=== PATIENT | male | born 1960 | race Caucasian/White ===

== ENCOUNTER 2016-09-09 06:41 | Inpatient (IN) | payer OTHER ==
[2016-08-25 14:29] VITALS: BMI 31.0
--- NOTE | 2016-08-25 15:08 | PAT Medication Instructions ---
Service Date Aug 25, 2016. Current Home Medication List Acetaminophen (Tylenol), 1,000 MG PO PRN Aspirin (Aspirin Ec), 81 MG PO QAM Fish Oil ([place]-3), 2 CAP PO QAM Multiple Vitamins W/ Minerals (Eql One Daily Mens Health), 1 TAB PO QAM Tamsulosin Hcl (Flomax), 1 CAP PO HS Medication Instructions For Your Scheduled Surgery - Check with surgeon for instructions: Aspirin (Aspirin Ec), 81 MG PO QAM - Hold the following medications 2 weeks prior to surgery: Fish Oil ([place]-3), 2 CAP PO QAM - Hold the following medications the morning of surgery: Multiple Vitamins W/ Minerals (Eql One Daily Mens Health), 1 TAB PO QAM - Take the following medications the morning of surgery with a sip of water: Acetaminophen (Tylenol), 1,000 MG PO PRN - Take the following medications as scheduled the night before surgery: Tamsulosin Hcl (Flomax), 1 CAP PO HS Acetaminophen (Tylenol), 1,000 MG PO PRN If you have any questions please call us at [phone] (Trista Salazar PA-C) or [phone] or [phone]
--- NOTE | 2016-08-25 15:39 | DIAGNOSTIC IMAGING REPORT ---
CHEST 2 VIEWS ROUTINE CLINICAL HISTORY: Preoperative evaluation. COMPARISON STUDY: Chest radiograph July 02, 2010. FINDINGS: Lung volumes are normal. There is no pneumothorax or pleural effusion. There is no consolidation. Pulmonary vascularity is normal. Cardiomediastinal silhouette is normal. IMPRESSION: No acute cardiopulmonary findings. Electronically signed by: Eloy Banda M.D. 08/25/2016 3:37 PM Dictated Date/Time: 08/25/2016 3:36 PM
[2016-08-25 16:17] LABS: BASO % 0.2 %; BASO ABS # 0.01 K/uL (0-0.2); COMPLETE YES; EOS % 1.2 %; IG% 0.2 %; LYMPH ABS # 1.54 K/uL (1.2-3.4); MEAN CELL VOLUME 91.3 fL (80-100); MEAN CORPUSCULAR HEMOGLOBIN 32.6 pg (25-34); MEAN CORPUSCULAR HGB CONC 35.8 g/dl (32-36); MEAN PLATELET VOLUME 10.7 fL (7.4-10.4); MONO % 5.6 %; NEUT % 66.8 %; PLATELET COUNT 170 K/uL (130-400); RED BLOOD COUNT 4.38 M/uL (4.7-6.1); WHITE BLOOD COUNT 5.92 K/uL (4.8-10.8)
[2016-08-25 16:18] LABS: URINE APPEARANCE CLEAR (CLEAR); URINE BILIRUBIN NEG (NEG); URINE COLOR YELLOW; URINE NITRITE NEG (NEG); URINE SPECIFIC GRAVITY 1.011 (1.000-1.030); UROBILINOGEN NEG (NEG)
[2016-08-25 16:23] LABS: MANUAL MICROSCOPIC REQUIRED? NO; REVIEW REQ? NO
[2016-08-25 16:41] LABS: BUN/CREATININE RATIO 12.9 (10-20); CALCIUM 8.9 mg/dl (8.5-10.1); CREATININE 1.2 mg/dl (0.60-1.40)
[2016-09-09] VITALS (8 sets, daily range): BP systolic 104–133; BP diastolic 63–74; PULSE 59–97; TEMP 36.4–37.1; O2SAT 95–100; Ht 170.2 cm; Wt 90.4 kg
[~2016-09-09] VITALS: Ht 170.2 cm; Wt 90.4 kg
[~2016-09-09 06:41] MED LIST: ACET-1256 PO; ASPI81TA28 PO; CEFAZOLIN 2000 MG/60 ML D5W IV SCH; HEPARIN SOD 5000 UNIT/0.5 ML CARP SQ SCH; LACTATED RINGER'S 1000ML 1,000 ML IV SCH; OMEG10007 PO; TAMS0.4C38 PO; [UNRECOGNIZED DRUG - CODE] PO
[2016-09-09] MEDS ORDERED: ATROPINE SULFATE 0.1 MG/ML 5ML SYR IV PRN (06:45)
[2016-09-09] MEDS ORDERED: FENTANYL CITRATE INJ 50 MCG/1 ML 2 ML VIAL IV PRN (06:45)
[2016-09-09] MEDS ORDERED: EpHEDrine SULFATE INJ 50 MG/ML AMP IV PRN (06:45)
[2016-09-09] MEDS ORDERED: ONDANSETRON INJ 2 MG/ML 2 ML VIAL IV PRN ×2 (06:45→12:00)
--- NOTE | 2016-09-09 07:09 | History & Physical Bridge Note ---
H&P Re-Evaluation Bridge Note: I have examined the patient, reviewed the History & Physical and in the interval since the performance of the History & Physical I have noted the following changes of clinical significance: No changes noted
[2016-09-09] MEDS ORDERED: LIDOCAINE HCL 2% 2 ML VIAL (20MG/ML) ONE (07:45)
[2016-09-09] MEDS ORDERED: FENTANYL CITRATE INJ 50 MCG/1 ML 2 ML VIAL ONE ×2 (07:45→12:14)
[2016-09-09] MEDS ORDERED: NEOSTIGMINE METHYLSULFATE 5 MG/5 ML SYR ONE (07:45)
[2016-09-09] MEDS ORDERED: DEXAMETHASONE SOD INJ 4 MG/ML VIAL ONE (07:45)
[2016-09-09] MEDS ORDERED: ONDANSETRON INJ 2 MG/ML 2 ML VIAL ONE ×2 (07:45→08:47)
[2016-09-09] MEDS ORDERED: GLYCOPYRROLATE INJ 0.2 MG/ML VIAL ONE ×2 (07:45→08:47)
[2016-09-09] MEDS ORDERED: PROPOFOL IV EMULSION 10 MG/ML 20 ML VIAL IV ONE (07:45)
[2016-09-09] MEDS ORDERED: ROCURONIUM BROMIDE 10 MG/ML 5 ML VIAL ONE ×2 (07:45→08:47)
[2016-09-09] MEDS ORDERED: MIDAZOLAM HCL 1 MG/ML 2ML VIAL ONE (07:45)
[2016-09-09] MEDS ORDERED: METHYLENE BLUE 0.5% 10 ML VIAL ONE (07:46)
[2016-09-09] MEDS ORDERED: BUPIVACAINE 0.5 % 5 MG/1 ML MPF 30ML VIAL ONE (07:47)
[2016-09-09] MEDS ORDERED: HYDROmorphone INJ 2 MG/ML SYR/VIAL ONE (08:49)
[2016-09-09] MEDS ORDERED: ACETAMINOPHEN 1000 MG/100 ML IV IV ONE (09:12)
[2016-09-09] MEDS ORDERED: EpHEDrine SULFATE 50MG/5ML SYR ONE (09:17)
[2016-09-09] MEDS ORDERED: SURGICEL ABSORB HEMOSTAT 2IN X 14IN TOP ONE (10:30)
[2016-09-09] MEDS ORDERED: FLOSEAL HEMOSTATIC MATRIX 10ML TOP ONE (10:30)
[2016-09-09] MEDS: LACTATED RINGER'S 1000ML 1,000 ML IV SCH ×2 (11:50→19:23)
[2016-09-09] MEDS ORDERED: KETOROLAC TROMETHAMINE 30 MG/ML VIAL IV. PRN (12:00)
[2016-09-09] MEDS ORDERED: OXYBUTYNIN CHLORIDE 5 MG TAB PO PRN (12:00)
[2016-09-09] MEDS ORDERED: OXYCODONE/ACETAMINOPHEN 7.5-325 TAB PO PRN (12:00)
[2016-09-09] MEDS ORDERED: HYDROmorphone INJ 1 MG/ML SYR IV PRN (12:00)
--- NOTE | 2016-09-09 12:10 | [facility] Post Operative Brief Note ---
Immediate Operative Summary Operative Date Sep 09, 2016. Pre-Operative Diagnosis Arn[place] 3+3 prostate cancer Post-Operative Diagnosis [place] 3+3 prostate cancer Procedure(s) Performed Robot assisted laparoscopic radical retropubic prostatectomy, bilateral nerve sparing Surgeon Dr. Karel Santos Hydrochloric Acid Operator Surgeon(s) JUNO Trejo Estimated Blood Loss 150 ML Findings Watertight anastomosis, excellent hemostasis and nerve sparing Specimens A: Periprostatic Fat B: Prostate and seminal vesicles Drains 18 fr silicone solano, 10 cc H2O, #10 CAMILA LLQ Anesthesia GAET + local Complication(s) None Disposition Recovery Room / PACU
[2016-09-09 12:13] LABS: HEMATOCRIT 40.6 % (42-52); MEAN CELL VOLUME 92.3 fL (80-100); MEAN CORPUSCULAR HEMOGLOBIN 31.6 pg (25-34); PLATELET COUNT 152 K/uL (130-400); WHITE BLOOD COUNT 9.17 K/uL (4.8-10.8)
[2016-09-09 12:17] LABS: MEAN CORPUSCULAR HGB CONC 34.2 g/dl (32-36)
[2016-09-09 12:35] LABS: BUN/CREATININE RATIO 11.3 (10-20); CALCIUM 8.5 mg/dl (8.5-10.1); CREATININE 1.1 mg/dl (0.60-1.40); POTASSIUM 3.9 mmol/L (3.5-5.1)
[2016-09-09] MEDS ORDERED: MoRPHine SULFATE 10 MG/ML CARP/VIAL ONE (12:55)
[2016-09-09] MEDS ORDERED: MoRPHine SULFATE 10 MG/ML CARP/VIAL IV PRN (13:00)
--- NOTE | 2016-09-09 13:45 | Anesthesiology Progress Note ---
Anesthesia Post Op Note Date & Time Sep 09, 2016 at 13:44 Vital Signs Pain Intensity: 2 Vital Signs Past 12 Hours Date Time Temp Pulse Resp B/P Pulse Ox O2 Delivery O2 Flow Rate FiO2 09/09/16 13:40 114/58 09/09/16 13:39 64 17 09/09/16 13:39 64 17 99 09/09/16 13:35 127/69 09/09/16 13:34 74 16 100 09/09/16 13:34 73 16 09/09/16 13:31 116/62 09/09/16 13:29 65 15 09/09/16 13:29 65 15 99 09/09/16 13:25 112/61 09/09/16 13:24 73 12 09/09/16 13:24 74 12 100 09/09/16 13:20 105/65 09/09/16 13:19 64 17 98 09/09/16 13:19 64 17 09/09/16 13:17 36.4 78 12 116/62 100 Nasal Cannula 2 09/09/16 13:16 104/57 09/09/16 13:14 72 10 98 09/09/16 13:14 69 10 09/09/16 13:13 80 11 99 09/09/16 13:13 80 11 09/09/16 13:10 113/61 09/09/16 13:08 97 14 99 09/09/16 13:08 95 14 09/09/16 13:06 111/63 09/09/16 13:03 82 14 100 09/09/16 13:03 74 14 09/09/16 13:00 122/70 09/09/16 12:58 71 16 98 09/09/16 12:58 71 16 09/09/16 12:55 112/66 09/09/16 12:53 62 10 09/09/16 12:53 62 10 100 09/09/16 12:51 122/70 09/09/16 12:48 65 14 100 09/09/16 12:48 65 14 09/09/16 12:46 130/70 09/09/16 12:43 66 12 09/09/16 12:43 66 12 100 09/09/16 12:40 129/77 09/09/16 12:38 80 19 09/09/16 12:38 77 19 100 09/09/16 12:36 129/73 09/09/16 12:33 75 17 100 09/09/16 12:33 75 17 09/09/16 12:30 117/65 09/09/16 12:28 64 17 09/09/16 12:28 62 17 100 09/09/16 12:25 119/65 09/09/16 12:23 64 12 100 09/09/16 12:23 63 12 09/09/16 12:21 112/74 09/09/16 12:18 64 10 09/09/16 12:18 64 10 100 09/09/16 12:17 68 10 09/09/16 12:17 68 10 100 09/09/16 12:16 119/70 09/09/16 12:12 79 10 09/09/16 12:12 79 10 100 09/09/16 12:11 127/69 09/09/16 12:07 74 14 09/09/16 12:07 72 14 100 09/09/16 12:06 121/64 09/09/16 12:02 68 10 09/09/16 12:02 72 10 100 09/09/16 12:00 112/60 09/09/16 12:00 71 12 112/60 98 Mask 10 09/09/16 11:57 73 17 95 09/09/16 11:57 72 17 09/09/16 11:55 113/57 09/09/16 11:53 107/59 09/09/16 11:52 36.4 73 16 107/59 98 Mask 10 09/09/16 07:27 36.9 63 20 133/74 95 Room Air Notes Mental Status: alert / awake / arousable, participated in evaluation Pt Amnestic to Procedure: Yes Nausea / Vomiting: adequately controlled Pain: adequately controlled Airway Patency, RR, SpO2: stable & adequate BP & HR: stable & adequate Hydration State: stable & adequate Anesthetic Complications: no major complications apparent
--- NOTE | 2016-09-09 14:05 | OPERATIVE REPORT ---
DATE OF OPERATION: 09/09/2016 PREOPERATIVE DIAGNOSIS: [place] 3+3 adenocarcinoma of the prostate. POSTOPERATIVE DIAGNOSIS: Same. PROCEDURE: Robot-assisted laparoscopic radical retropubic prostatectomy with bilateral nerve sparing dissection. SURGEON: Dr. Karel Santos. FISH FRYER: JUNO Trejo. ANESTHESIA: General anesthesia with endotracheal intubation plus local at port sites. ESTIMATED BLOOD LOSS: 150 mL. IV FLUIDS: 1300 mL crystalloid. COMPLICATIONS: None. FINDINGS: Watertight anastomosis with excellent hemostasis and nerve sparing dissection on both sides. DRAINS LEFT IN PLACE: Include an 18 [place] Jeffers catheter to gravity drainage with 10 mL of sterile water in the balloon, silicone catheter used, #10 CAMILA drain in the left lower quadrant. SPECIMENS SENT TO PATHOLOGY: Periprostatic fat, prostate plus seminal vesicles. BRIEF HISTORY: Mr. Leo is a pleasant 56-year-old male who I have seen as an outpatient in consultation for Dr. Mario Wilhelm for a history of newly diagnosed [place] 3+3 adenocarcinoma of the prostate. The patient has relatively low risk disease and after discussing risks and benefits of various forms of intervention, he has decided upon a robotic prostatectomy to manage his disease. Seeing his low risk disease, nerve sparing dissection and no lymph node dissection is planned on both sides. Please see H\T\P for further details. Subcutaneous heparin and intravenous cephalosporins are provided for antibiotic coverage and DVT prophylaxis. SCDs were also used. PROCEDURE IN DETAIL: The patient was properly identified and brought to the operative suite. After identification of appropriate consent on the chart, general anesthesia with endotracheal intubation was initiated and the patient was prepped and draped in standard fashion for this procedure. time clock inspector-out procedure was followed. All port sites were anesthetized with local prior to incision. Supraumbilical incision 12 mm in size was made and abdomen was entered under direct visualization using a visual obturator and a 0 degree laparoscope. Abdomen was insufflated to 15 mmHg and the patient was noted to have excellent intraabdominal anatomy with the prostate fat. Ports were placed for a 4th arm robotic template including 2 left-sided 7 mm ports, 1 right-sided 7 mm port and 5 and 12 mm museum assistant ports on the right hand side. The patient was placed in Trendelenburg and robot was brought in and docked. Bladder was dropped down to the level of the pubic bone and prostate was defatted. Periprostatic fat was sent for pathologic analysis. Endopelvic fascia was entered on both sides sharply and dissection was carried out to the level of the apex. Again, excellent anatomy was appreciated. An apparent accessory vessel in the area of the dorsal vein was spared and left intact, felt to possibly be assisting with erectile function. Dorsal vein was controlled using [id number] 0 Vicryl suture on a CT1 needle. The boundaries of nerve sparing were defined using cold dissection and urethra was able to be skeletonized at this point in the surgery. A 30-degree down lens was placed and the bladder neck was placed on traction. This was skeletonized down to the level of the Jeffers catheter in the midline. Some BPH was appreciated with lateral lobe hypertrophy. Catheter was used with anterior traction to place the prostate on traction. Posterior bladder neck was divided and dropped in the midline until the vas deferens were encountered in the posterior plane. These were circumscribed and divided. Clips were used on the inferior bladder pedicles and prostatic pedicles for vascular control. Seminal vesicles were dissected free on both sides and rectum was dropped in the midline up to the level of the apex of the prostate. Meticulous nerve sparing dissection on both sides was carried out with minimal cautery being used. This was carried out to the level of the apex bilaterally. Attention was then turned to the dorsal vein again, which was divided using hot scissors. Urethra was skeletonized with an excellent urethral stump and then divided. Rectourethralis fibers were taken and prostate was removed from the pelvis and placed within an EndoCatch bag for retrieval at the end of the case. Rectum was insufflated under saline irrigation and noted to be free of any injury. Attention was turned to the pelvis where excellent hemostasis was appreciated. This was further assisted by providing FloSeal tissue sealant at the level of the prostate bed. Excellent nerve sparing dissection was noted. Using a double armed V-Loc suture, circumferential running anastomosis was performed with the Jeffers catheter being visualized entering the bladder prior to completion of closure. 10 mL of sterile water was placed in the balloon and bladder was tested to greater than 120 mL of irrigant with no evidence of leaks. [place] were removed and sponge and instrument count were noted to be correct. Fourth arm was removed and #10 CAMILA drain was brought in via the fourth arm port. This was placed within the confines of the pelvis while avoiding placing it directly over the anastomosis. Robot was removed and camera was brought in via the museum assistant port. Strings from the EndoCatch bag were brought out through the supraumbilical port which was then enlarged sufficiently to allow for easy passage of the specimen. The supraumbilical incision was closed using 0 Vicryl suture on a UR-5 and UR-6 needle. 2-0 silk was used to secure the drain in place and Monocryl and Dermabond were used at the skin incisions. Excess carbon dioxide gas had been removed from the abdomen prior to completion of closure. Anesthesia was reversed. The patient was transferred to recovery room in stable condition. FOLLOWUP CARE: The patient will be admitted to the floor for standard postoperative management. I attest to the content of the Intraoperative Record and any orders documented therein. Any exceptio ns are noted below.
[2016-09-09 15:29] LABS: PROTHROMBIN TIME (PATIENT) 10.5 SECONDS (9.0-12.0)
[2016-09-09] MEDS: ACETAMINOPHEN 500 MG TAB PO SCH ×2 (16:00→21:28)
[2016-09-09] MEDS: CEFAZOLIN IV 2,000 MG in DEXTROSE 5% 50ML 50 ML IV SCH ×2 (16:01→23:24)
[2016-09-09] MEDS: HEPARIN SOD 5000 UNIT/0.5 ML CARP SQ SCH (19:24)
[2016-09-09] MEDS: DOCUSATE SODIUM 100 MG CAP PO SCH (21:27)
[2016-09-10 03:09] VITALS: BP 100/61; PULSE 72; TEMP 36.8; O2SAT 96
[2016-09-10] MEDS: ACETAMINOPHEN 500 MG TAB PO SCH ×3 (03:29→16:33)
[2016-09-10] MEDS: LACTATED RINGER'S 1000ML 1,000 ML IV SCH ×2 (03:30→12:04)
[2016-09-10 07:07] LABS: COMPLETE YES; EOS % 0.3 %; HEMATOCRIT 36.6 % (42-52); IG% 0.1 %; LYMPH ABS # 1.33 K/uL (1.2-3.4); MEAN CELL VOLUME 94.1 fL (80-100); MEAN CORPUSCULAR HEMOGLOBIN 31.9 pg (25-34); MEAN CORPUSCULAR HGB CONC 33.9 g/dl (32-36); MEAN PLATELET VOLUME 10.2 fL (7.4-10.4); MONO % 7.7 %; NEUT % 73.9 %; PLATELET COUNT 136 K/uL (130-400); RED BLOOD COUNT 3.89 M/uL (4.7-6.1); WHITE BLOOD COUNT 7.39 K/uL (4.8-10.8)
[2016-09-10 07:29] VITALS: BP 119/76; PULSE 72; TEMP 36.8; O2SAT 97
[2016-09-10 07:29] LABS: BUN/CREATININE RATIO 9.8 (10-20); CALCIUM 8.7 mg/dl (8.5-10.1); POTASSIUM 4.1 mmol/L (3.5-5.1)
[2016-09-10] MEDS: CEFAZOLIN IV 2,000 MG in DEXTROSE 5% 50ML 50 ML IV SCH (07:30)
[2016-09-10 07:38] VITALS: O2SAT 97
--- NOTE | 2016-09-10 08:19 | Anesthesiology Progress Note ---
Anesthesia Post Op Note Date & Time Sep 10, 2016 at 08:18 Vital Signs Vital Signs Past 12 Hours Date Time Temp Pulse Resp B/P Pulse Ox O2 Delivery O2 Flow Rate FiO2 09/10/16 07:38 97 Room Air 09/10/16 07:29 36.8 72 19 119/76 97 Room Air 09/10/16 03:09 36.8 72 16 100/61 96 Room Air 09/09/16 23:22 36.7 64 16 111/68 96 Room Air 09/09/16 23:16 Room Air Notes Mental Status: alert / awake / arousable, participated in evaluation Pt Amnestic to Procedure: Yes Nausea / Vomiting: adequately controlled Pain: adequately controlled Airway Patency, RR, SpO2: stable & adequate BP & HR: stable & adequate Hydration State: stable & adequate Anesthetic Complications: no major complications apparent
[2016-09-10] MEDS: DOCUSATE SODIUM 100 MG CAP PO SCH (09:07)
[2016-09-10] MEDS: HEPARIN SOD 5000 UNIT/0.5 ML CARP SQ SCH (09:11)
--- NOTE | 2016-09-10 11:07 | Progress Note ---
Subjective Date of Service: Sep 10, 2016. Subjective Pt evaluation today including: conversation w/ patient, physical exam, chart review, lab review, review of studies Voiding: solano catheter in place 56 year old male s/p RALP for prostate cancer. Doing well post op Tolerating diet, ambulating in james. IVF infusing. Solano intact draining clear urine. CAMILA intact draining small amounts of serosang drainage. Labs and vitals stable. Incisions intact and look well. abdominal soft. Minimal c/o pain. Review of Systems Constitutional: No chills, No fever ENT: No hearing loss Respiratory: No cough, No dyspnea on exertion, No shortness of breath Abdomen: No diarrhea, No pain, No vomiting Male : + see HPI Psychiatric: No depression symptoms Heme: No abnormal bleeding/bruising Endo: No fatigue Skin: No rash Objective Vital Signs Date Time Temp Pulse Resp B/P Pulse Ox O2 Delivery O2 Flow Rate FiO2 09/10/16 07:38 97 Room Air 09/10/16 07:29 36.8 72 19 119/76 97 Room Air 09/10/16 03:09 36.8 72 16 100/61 96 Room Air 09/09/16 23:22 36.7 64 16 111/68 96 Room Air 09/09/16 23:16 Room Air 09/09/16 19:27 36.4 74 18 114/68 95 Room Air 09/09/16 16:54 37.1 97 18 104/65 98 Nasal Cannula 2.0 09/09/16 15:47 36.5 59 16 115/72 99 Nasal Cannula 2.0 09/09/16 15:45 Nasal Cannula 2.0 09/09/16 14:51 73 19 105/63 97 Room Air 09/09/16 14:20 73 18 112/72 99 Nasal Cannula 2.0 09/09/16 13:50 36.8 83 18 117/68 100 Nasal Cannula 2.0 09/09/16 13:50 Nasal Cannula 2.0 09/09/16 13:50 100 Nasal Cannula 2.0 09/09/16 13:40 114/58 09/09/16 13:39 64 17 09/09/16 13:39 64 17 99 09/09/16 13:35 127/69 09/09/16 13:34 74 16 100 09/09/16 13:34 73 16 09/09/16 13:31 116/62 09/09/16 13:29 65 15 09/09/16 13:29 65 15 99 09/09/16 13:25 112/61 09/09/16 13:24 73 12 09/09/16 13:24 74 12 100 09/09/16 13:20 105/65 09/09/16 13:19 64 17 98 09/09/16 13:19 64 17 09/09/16 13:17 36.4 78 12 116/62 100 Nasal Cannula 2 09/09/16 13:16 104/57 09/09/16 13:14 72 10 98 09/09/16 13:14 69 10 09/09/16 13:13 80 11 99 09/09/16 13:13 80 11 09/09/16 13:10 113/61 09/09/16 13:08 97 14 99 09/09/16 13:08 95 14 09/09/16 13:06 111/63 09/09/16 13:03 82 14 100 09/09/16 13:03 74 14 09/09/16 13:00 122/70 09/09/16 12:58 71 16 98 09/09/16 12:58 71 16 09/09/16 12:55 112/66 09/09/16 12:53 62 10 09/09/16 12:53 62 10 100 09/09/16 12:51 122/70 09/09/16 12:48 65 14 100 09/09/16 12:48 65 14 09/09/16 12:46 130/70 09/09/16 12:43 66 12 09/09/16 12:43 66 12 100 09/09/16 12:40 129/77 09/09/16 12:38 80 19 09/09/16 12:38 77 19 100 09/09/16 12:36 129/73 09/09/16 12:33 75 17 100 09/09/16 12:33 75 17 09/09/16 12:30 117/65 09/09/16 12:28 64 17 09/09/16 12:28 62 17 100 09/09/16 12:25 119/65 09/09/16 12:23 64 12 100 09/09/16 12:23 63 12 09/09/16 12:21 112/74 09/09/16 12:18 64 10 09/09/16 12:18 64 10 100 09/09/16 12:17 68 10 09/09/16 12:17 68 10 100 09/09/16 12:16 119/70 09/09/16 12:12 79 10 09/09/16 12:12 79 10 100 09/09/16 12:11 127/69 09/09/16 12:07 74 14 09/09/16 12:07 72 14 100 09/09/16 12:06 121/64 09/09/16 12:02 68 10 09/09/16 12:02 72 10 100 09/09/16 12:00 112/60 09/09/16 12:00 71 12 112/60 98 Mask 10 09/09/16 11:57 73 17 95 09/09/16 11:57 72 17 09/09/16 11:55 113/57 09/09/16 11:53 107/59 09/09/16 11:52 36.4 73 16 107/59 98 Mask 10 Physical Exam General Appearance: WD/WN, no apparent distress Eyes: normal inspection ENT: hearing grossly normal Neck: no JVD Respiratory/Chest: no respiratory distress, no accessory muscle use Abdomen: soft Extremities: normal range of motion, non-tender, normal inspection, no pedal edema, no calf tenderness Neurologic/Psychiatric: alert, normal mood/affect, oriented x 3 Skin: normal color, warm/dry, no rash Laboratory Results Last 24 Hours Test 09/09/16 12:06 09/09/16 15:00 09/10/16 06:46 White Blood Count 9.17 K/uL 7.39 K/uL Red Blood Count 4.40 M/uL 3.89 M/uL Hemoglobin 13.9 g/dL 12.4 g/dL Hematocrit 40.6 % 36.6 % Mean Corpuscular Volume 92.3 fL 94.1 fL Mean Corpuscular Hemoglobin 31.6 pg 31.9 pg Mean Corpuscular Hemoglobin Concent 34.2 g/dl 33.9 g/dl RDW Standard Deviation 42.1 fL 43.6 fL RDW Coefficient of Variation 12.4 % 12.8 % Platelet Count 152 K/uL 136 K/uL Mean Platelet Volume 10.0 fL 10.2 fL Sodium Level 142 mmol/L 141 mmol/L Potassium Level 3.9 mmol/L 4.1 mmol/L Chloride Level 110 mmol/L 107 mmol/L Carbon Dioxide Level 28 mmol/L 30 mmol/L Anion Gap 4.0 mmol/L 4.0 mmol/L Blood Urea Nitrogen 12 mg/dl 10 mg/dl Creatinine 1.10 mg/dl 1.00 mg/dl Est Creatinine Clear Calc Drug Dose 81.4 ml/min 89.5 ml/min Estimated GFR () 87.1 97.8 Estimated GFR (Non- 75.2 84.4 BUN/Creatinine Ratio 11.3 9.8 Random Glucose 162 mg/dl 94 mg/dl Calcium Level 8.5 mg/dl 8.7 mg/dl Prothrombin Time 10.5 SECONDS Prothromb Time International Ratio 1.0 Activated Partial Thromboplast Time 24.8 SECONDS Partial Thromboplastin Ratio 1.0 Neutrophils (%) (Auto) 73.9 % Lymphocytes (%) (Auto) 18.0 % Monocytes (%) (Auto) 7.7 % Eosinophils (%) (Auto) 0.3 % Basophils (%) (Auto) 0.0 % Neutrophils # (Auto) 5.46 K/uL Lymphocytes # (Auto) 1.33 K/uL Monocytes # (Auto) 0.57 K/uL Eosinophils # (Auto) 0.02 K/uL Basophils # (Auto) 0.00 K/uL Immature Granulocyte % (Auto) 0.1 % Immature Granulocyte # (Auto) 0.01 K/uL Assessment and Plan Prostate Cancer s/p RALP Doing well post op. Tolerating diet and passing flatus. Will increase his diet. Solano cath care teaching. Okay to d/c CAMILA and IVF prior to d/c - if tolerating diet and pain remains controlled. Dr. Santos will be by to see pt this afternoon then ok to d/c home. RX on chart and discharge instructions written.
[2016-09-10] MEDS ORDERED: DTR5 PO (11:09)
[2016-09-10] MEDS ORDERED: CLC100 PO (11:09)
[2016-09-10] MEDS ORDERED: CIPR-255 PO (11:09)
[2016-09-10] MEDS ORDERED: OXYC7.5T62 PO (11:09)
--- NOTE | 2016-09-10 11:10 | Discharge Instructions ---
Discharge Instructions Date of Service Sep 10, 2016. Admission Reason for Admission: Prostate Cancer Discharge Discharge Diagnosis / Problem: Prostate Cancer Discharge Goals Goal(s): Decrease discomfort, Improve function, Improve disease control, Prevent Disease Progression Activity Recommendations Activity Limitations: per Instructions/Follow-up section . Instructions / Follow-Up Instructions / Follow-Up 1. Do not lift >15lbs x 6 weeks. 2. No heavy exercise x 6 weeks. You may engage in light activity such as walking and stairs as tolerated. 3. No sexual intercourse until cleared by Dr. Santos or Dr. Garcia. 4. Do not drive x [address] while taking narcotics. 5. Finish all of the antibiotic you have been prescribed. 6. Immediately call our office at [phone] if your catheter is removed for any reason. 7. Follow-up as scheduled. Please call our office at [phone] if you need to reschedule for any reason. . Current Hospital Diet Hospital Diet(s): Regular Diet Discharge Diet Recommended Diet: Regular Diet Procedures Procedures Performed: Robot assisted laparoscopic radical retropubic prostatectomy, bilateral nerve sparing Pending Studies Studies pending at discharge: no Medical Emergencies . Who to Call and When: Medical Emergencies: If at any time you feel your situation is an emergency, please call 911 immediately. . Non-Emergent Contact Non-Emergency issues call your: Primary Care Provider, Urologist Call Non-Emergent contact if: temperature is above 101.5 . . "Provider Documentation" section prepared by Brenda Warren. . VTE Core Measure Inpt VTE Proph given/why not?: Unfractionated heparin SQ, SCD's [place] Drug Monitoring Program Search Results: no issues identified
[2016-09-10 15:00] VITALS: BP 112/71; PULSE 66; TEMP 37.2; O2SAT 95
[2016-09-10 15:30] VITALS: BP 119/76; PULSE 72; TEMP 36.8; O2SAT 97
--- NOTE | 2016-09-22 05:57 | DISCHARGE SUMMARY ---
ADMITTING DIAGNOSIS: Adenocarcinoma of the prostate. DISCHARGE DIAGNOSIS: Same. PROCEDURES OVER THE COURSE OF ADMISSION: Include a robot-assisted laparoscopic radical retropubic prostatectomy on 09/09/2016. ADMITTING ATTENDING: Dr. Karel Santos. COMPLICATIONS: None. BRIEF HISTORY: Mr. Leo is a pleasant 56-year-old male who I have seen as an outpatient for history of prostate cancer. After discussion of risks and benefits of various forms of intervention, the patient has decided upon a robotic prostatectomy to manage his disease. Please see H\T\P for further details. HOSPITAL COURSE: The patient was admitted to the hospital on 09/09/2016 after an uncomplicated robotic prostatectomy. Please see operative report for further details. After the surgery, the patient was admitted to the floor for standard postoperative management. His hospital course was uncomplicated with diet and activity being rapidly advanced and Jeffers catheter being left in place. By postoperative day #1, on the , he was ambulating in the hallways, tolerating a regular diet and comfortable on oral pain medication. He was considered stable for discharge home at this time. Please see progress notes for further details. DISCHARGE INSTRUCTIONS: Please see discharge instruction sheet and medication list for further details. Outpatient followup appointment and trial of order are confirmed. The patient is instructed to contact our office with any fevers, chills, nausea, vomiting or other significant difficulties in the postoperative period.
== END 2016-09-10 17:00 | disposition home or self-care (01) | DRG 708 ==
LOC: ENRESERVTM → ENRESERVDT → C.ACU 06:41 → C.MSW 11:56
PROVIDERS: ADMIT Urology; ATTEND Urology
PROC: 0VT04ZZ Resection of Prostate, Percutaneous Endoscopic Approach (ICD-10-PCS; principal; 2016-09-09 08:45)
PROC: 8E0W4CZ Robotic Assisted Procedure of Trunk Region, Percutaneous Endoscopic Approach (ICD-10-PCS; principal; 2016-09-09 08:45)
DX: C61 Malignant neoplasm of prostate (principal); N40.0 Benign prostatic hyperplasia without lower urinary tract symptoms; E88.81 Metabolic syndrome and other insulin resistance; E78.5 Hyperlipidemia, unspecified; R73.01 Impaired fasting glucose; R39.12 Poor urinary stream; F17.220 Nicotine dependence, chewing tobacco, uncomplicated; Z79.82 Long term (current) use of aspirin; Z79.899 Other long term (current) drug therapy; Z82.49 Family history of ischemic heart disease and other diseases of the circulatory system; Z80.42 Family history of malignant neoplasm of prostate; Z83.3 Family history of diabetes mellitus

== ENCOUNTER → 2016-11-23 | Outpatient (CLI) | payer OTHER ==
[~2016-11-23] MED LIST changes: -ASPI81TA28 PO; -CEFAZOLIN 2000 MG/60 ML D5W IV SCH; +CIPR-255 PO; +CLC100 PO; +DTR5 PO; -HEPARIN SOD 5000 UNIT/0.5 ML CARP SQ SCH; -LACTATED RINGER'S 1000ML 1,000 ML IV SCH; +OXYC7.5T62 PO
[2016-11-23 18:27] LABS: BLOOD UREA NITROGEN 18 mg/dl (7-18); BUN/CREATININE RATIO 16.7 (10-20)
[2016-11-23 18:32] LABS: PROSTATE SPECIFIC ANTIGEN < 0.010 ng/ml (0.000-4.000)
== END | disposition home or self-care (01) ==
LOC: C.LABMFLN 12:14
PROVIDERS: ATTEND Urology
DX: R32 Unspecified urinary incontinence (principal)

== ENCOUNTER 2017-05-13 22:28 | Emergency (ER) | payer OTHER ==
[~2017-05-13] VITALS: Ht 170.2 cm; Wt 90.3 kg
[2017-05-13 22:30] VITALS: TEMP 36.8; Ht 170.2 cm; Wt 90.3 kg
[2017-05-13 22:54] VITALS: O2SAT 97
[2017-05-13 22:59] LABS: BASO % 0.8 %; BASO ABS # 0.05 K/uL (0-0.2); EOS % 2.4 %; EOS ABS # 0.15 K/uL (0-0.5); HEMATOCRIT 43.6 % (42-52); HEMOGLOBIN 14.9 g/dL (14.0-18.0); IG# 0.01 K/uL (0.00-0.02); LYMPH % 22.1 %; LYMPH ABS # 1.36 K/uL (1.2-3.4); MEAN CELL VOLUME 92.2 fL (80-100); MEAN CORPUSCULAR HEMOGLOBIN 31.5 pg (25-34); MEAN CORPUSCULAR HGB CONC 34.2 g/dl (32-36); MEAN PLATELET VOLUME 10.5 fL (7.4-10.4); MONO % 8.1 %; NEUT % 66.4 %; NEUT ABS # 4.08 K/uL (1.4-6.5); PLATELET COUNT 186 K/uL (130-400); RED CELL DISTRIBUTION WIDTH CV 12.7 % (11.5-14.5); RED CELL DISTRIBUTION WIDTH SD 42.9 fL (36.4-46.3); WHITE BLOOD COUNT 6.15 K/uL (4.8-10.8)
[2017-05-13] MEDS ORDERED: VGR50 PO (23:29)
[2017-05-13 23:34] LABS: ALBUMIN 3.7 gm/dl (3.4-5.0); ALKALINE PHOSPHATASE 112 U/L (45-117); ALT/SGPT 25 U/L (12-78); BLOOD UREA NITROGEN 23 mg/dl (7-18); CALCIUM 8.5 mg/dl (8.5-10.1); CARBON DIOXIDE 22 mmol/L (21-32); CREATININE 1.11 mg/dl (0.60-1.40); GLUCOSE 143 mg/dl (70-99); LIPASE 264 U/L (73-393); TOTAL PROTEIN 7.1 gm/dl (6.4-8.2)
[2017-05-13 23:39] LABS: POTASSIUM 3.9 mmol/L (3.5-5.1); SODIUM 141 mmol/L (136-145)
[2017-05-13 23:47] LABS: AST/SGOT 18 U/L (15-37)
--- NOTE | 2017-05-14 03:21 | EMERGENCY ROOM VISIT NOTE ---
History First contact with patient: 22:33 Chief Complaint: CHEST PAIN Stated Complaint: L CHEST PAIN Nursing Triage Summary: Left sided chest pain 1 hour ago that lasted approximately 10min. Took 81mg ASA. Reports blood pressure high at home with self check. Reports "slight" chest pain at this time. History of Present Illness The patient is a 57 year old male who presents to the Emergency Room with complaints of left sided chest pain an hour ago that lasted for about 10 minutes described as pressure, ranging in severity was 4 out of 10 that is now are soft. Patient states he was sweaty with the pain. Patient denies exertional pain, dyspnea, radiating pain, recent illness, trauma to the area, heavy lifting, back pain, abdominal pain, leg pain or swelling. No prior heart disease. He states his stress test 2 years ago that was normal down [facility]. Patient does chew tobacco. His father had heart disease in his 70s. No other family history. Review of Systems See HPI for pertinent positives & negatives. A total of 10 systems reviewed and were otherwise negative. Past Medical/Surgical History Prostate cancer with prostatectomy Social History Smoking Status: Never Smoker Smokeless Tobacco Use: Yes Drug Use: none Marital Status: Housing Status: lives with family Current/Historical Medications Scheduled Sildenafil Citrate (Viagra), 50 MG PO PRN Physical Exam Vital Signs Date Time Temp Pulse Resp B/P (MAP) Pulse Ox O2 Delivery O2 Flow Rate FiO2 05/14/17 02:22 64 05/14/17 02:10 61 14 96 05/14/17 02:07 139/79 05/14/17 02:00 139/79 05/14/17 01:40 61 14 97 05/14/17 01:30 124/78 05/14/17 01:10 61 15 96 05/14/17 01:05 60 16 98 05/14/17 01:00 119/78 05/14/17 00:35 63 20 96 05/14/17 00:30 122/75 05/14/17 00:05 65 15 96 05/14/17 00:00 123/79 05/13/17 23:35 70 16 96 05/13/17 23:30 119/75 05/13/17 23:29 113/67 05/13/17 23:28 70 17 98 05/13/17 22:58 68 16 05/13/17 22:54 97 Room Air 05/13/17 22:43 70 05/13/17 22:30 98 Room Air 05/13/17 22:30 36.8 77 16 153/90 97 Room Air Physical Exam VITALS: Vitals are noted on the nurse's note and reviewed by myself. Vital signs stable. GENERAL: Pleasant male, in no acute distress, nondiaphoretic, well-developed well-nourished. SKIN: The skin was without rashes, erythema, edema, or bruising. There is no tenting of the skin. Capillary reflex less than 2 seconds. HEAD: Normocephalic atraumatic. EARS: External auditory canals clear, tympanic membranes pearly sierra without erythema or effusion bilaterally. EYES: Pupils equal round and reactive to light and accommodation. Conjunctivae without injection, sclerae without icterus. Extraocular movements intact. NOSE: Patent, turbinates without inflammation or discharge. MOUTH: Mucous membranes moist. Pharynx without erythema or exudate. Uvula midline. Airway patent. Tongue does not deviate. NECK: Supple without nuchal rigidity. No lymphadenopathy. No thyromegaly. Cervical spine is nontender. No JVD. HEART: Regular rate and rhythm chest nontender to palpation LUNGS: Clear to auscultation bilaterally without wheezes, rales or rhonchi. No dullness to percussion. No retractions or accessory muscle use. ABDOMEN: Positive bowel sounds x 4. Normal tympanic percussion. Soft, nontender, without masses or organomegaly. Laureano sign negative. No guarding or rebound tenderness. MUSCULOSKELETAL: No muscle atrophy, erythema, or edema noted. NEURO: Patient was alert and oriented to person place and time. Normal sensation to light and sharp touch. No focal neurological deficits. Medical Decision & Procedures Laboratory Results 05/13/17 22:40 Red Blood Count 4.73, Mean Corpuscular Volume 92.2, Mean Corpuscular Hemoglobin 31.5, Mean Corpuscular Hemoglobin Concent 34.2, Mean Platelet Volume 10.5, Neutrophils (%) (Auto) 66.4, Lymphocytes (%) (Auto) 22.1, Monocytes (%) (Auto) 8.1, Eosinophils (%) (Auto) 2.4, Basophils (%) (Auto) 0.8, Neutrophils # (Auto) 4.08, Lymphocytes # (Auto) 1.36, Monocytes # (Auto) 0.50, Eosinophils # (Auto) 0.15, Basophils # (Auto) 0.05 05/13/17 22:40 Test 05/13/17 22:40 05/14/17 03:04 White Blood Count 6.15 K/uL (4.8-10.8) Red Blood Count 4.73 M/uL (4.7-6.1) Hemoglobin 14.9 g/dL (14.0-18.0) Hematocrit 43.6 % (42-52) Mean Corpuscular Volume 92.2 fL (80-100) Mean Corpuscular Hemoglobin 31.5 pg (25-34) Mean Corpuscular Hemoglobin Concent 34.2 g/dl (32-36) Platelet Count 186 K/uL (130-400) Mean Platelet Volume 10.5 fL (7.4-10.4) Neutrophils (%) (Auto) 66.4 % Lymphocytes (%) (Auto) 22.1 % Monocytes (%) (Auto) 8.1 % Eosinophils (%) (Auto) 2.4 % Basophils (%) (Auto) 0.8 % Neutrophils # (Auto) 4.08 K/uL (1.4-6.5) Lymphocytes # (Auto) 1.36 K/uL (1.2-3.4) Monocytes # (Auto) 0.50 K/uL (0.11-0.59) Eosinophils # (Auto) 0.15 K/uL (0-0.5) Basophils # (Auto) 0.05 K/uL (0-0.2) RDW Standard Deviation 42.9 fL (36.4-46.3) RDW Coefficient of Variation 12.7 % (11.5-14.5) Immature Granulocyte % (Auto) 0.2 % Immature Granulocyte # (Auto) 0.01 K/uL (0.00-0.02) Anion Gap 12.0 mmol/L (3-11) Est Creatinine Clear Calc Drug Dose 79.7 ml/min Estimated GFR () 85.6 Estimated GFR (Non- 73.8 BUN/Creatinine Ratio 20.5 (10-20) Calcium Level 8.5 mg/dl (8.5-10.1) Total Bilirubin 0.3 mg/dl (0.2-1) Direct Bilirubin mg/dl (0-0.2) Aspartate Amino Transf (AST/SGOT) 18 U/L (15-37) Alanine Aminotransferase (ALT/SGPT) 25 U/L (12-78) Alkaline Phosphatase 112 U/L (45-117) Troponin I < 0.015 ng/ml (0-0.045) Total Protein 7.1 gm/dl (6.4-8.2) Albumin 3.7 gm/dl (3.4-5.0) Lipase 264 U/L (73-393) ED Course Prior records/ancillary studies reviewed. Triage Nursing notes reviewed. Additional history obtained from family. The patient's history was concerning for chest pain. Differential diagnosis: Etiologies such as cardiac ischemia, aortic dissection, pulmonary embolism, pneumonia, pneumothorax, musculoskeletal, infections, pericarditis, myocarditis , esophageal rupture, gastrointestinal, as well as others were entertained. Physical examination: As above. ER treatment provided: patient was observed. Patient took aspirin just prior to arrival prednisone On reassessment the patient felt better. Diagnostic interpretation by me: The electrocardiogram was negative for pathologic change. Normal sinus, poor baseline, incomplete right bundle-branch block, normal axis, rate of 76. Impression incomplete right bundle branch block with poor baseline interpreted by myself The labs revealed 2 negative troponins that were greater then 4 hours apart. Imaging studies: Chest x-ray with no acute consolidation, pneumothorax or free air per my interpretation Exam and history seem consistent with chest pain unlikely to be cardiac in etiology. Patient had 2 normal EKGs. 2 negative troponins. Symptoms were less than 10 minutes. Patient was advised to follow-up family care Dr. for updated stress and echo and for reevaluation. He is advised to return to the ER immediately for chest pain, difficulty breathing, worsening signs or symptoms or as needed. By the evaluation outlined above emergent etiologies such as cardiac ischemia, aortic dissection, pulmonary embolism, pneumonia, pneumothorax, infections, pericarditis, myocarditis, gastrointestinal, as well as others were deemed relatively unlikely. The pt informed about the findings as listed above. All questions were answered and pleased with the treatment. Return instructions were outlined and the patient was discharged in stable condition. Referral: The patient was referred back to primary care physician for follow-up in 2 to 3 days for a recheck of the current condition. Case reviewed with my attending Medical Decision As above Medication Reconcilliation Current Medication List: was personally reviewed by me Blood Pressure Screening Patient's blood pressure: Elevated blood pressure Blood pressure disposition: Elevated BP felt to be situational Impression Primary Impression: Precordial chest pain Departure Information Dispostion Home / Self-Care Condition GOOD Referrals RV. Santiago MD (PCP) Patient Instructions [facility] Additional Instructions Ibuprofen(Motrin, Advil) may be used for fever or pain. Use 600mg every six hours as needed. Take with food. Avoid using more than 2400mg in a 24 hour period. Do not use 2400mg per day for more than three consecutive days without physician direction. Prolonged inappropriate use can lead to stomach upset or ulcers. (AND/OR) Acetaminophen(Tylenol) may be used for fever or pain. Use 1000mg every six hours as needed. Avoid using more than 3000mg in a 24 hour period. Rest and drink plenty of fluids as tolerated. Continue current medications. Avoid strenuous activities and anything that worsens your pain. Resume normal activities once your symptoms resolve. Return to the ER immediately for worsening or persistent chest pain, abdominal pain, vomiting, fevers, chest pains, difficulty breathing, worsening of your condition, or as needed. Follow up with your primary physician in 2-3 days for a recheck of your current condition.
[2017-05-14 03:28] VITALS: BP 107/69; PULSE 61; O2SAT 99
--- NOTE | 2017-05-14 05:20 | DIAGNOSTIC IMAGING REPORT ---
CHEST ONE VIEW PORTABLE CLINICAL HISTORY: 57 years-old Male presenting with CHEST PAIN. TECHNIQUE: Portable upright AP view of the chest was obtained. COMPARISON: 08/25/2016. FINDINGS: Cardiomediastinal silhouette normal. Lungs and pleural spaces clear. Degenerative changes of the thoracic spine. Upper abdomen normal. IMPRESSION: 1. No acute cardiopulmonary disease. Electronically signed by: Gonzales Fuentes M.D. 05/14/2017 5:19 AM Dictated Date/Time: 05/14/2017 5:16 AM
== END 2017-05-14 03:28 | disposition home or self-care (01) ==
LOC: C.EDB 22:29 → C.EDA 05-14 03:28
DX: R07.2 Precordial pain (principal); F17.220 Nicotine dependence, chewing tobacco, uncomplicated; Z85.46 Personal history of malignant neoplasm of prostate; Z90.79 Acquired absence of other genital organ(s); Z82.49 Family history of ischemic heart disease and other diseases of the circulatory system